=== PATIENT | female | born 1970 | race Caucasian/White ===

== ENCOUNTER 2019-02-09 17:28 | Emergency (ER) | payer BC ==
[~2019-02-09] VITALS: Ht 167.6 cm; Wt 106.0 kg
[2019-02-09 17:30] VITALS: BP 204/114
--- NOTE | 2019-02-09 18:41 | NUR ---
at [facility]
--- NOTE | 2019-02-09 19:00 | NUR ---
gave log report number of [id number]
[2019-02-09] MEDS ORDERED: LORazepam 1 MG tablet PO ONE (19:10)
== END 2019-02-09 19:43 | disposition home or self-care (01) ==
LOC: ER 17:29
DX: S29.012A Strain of muscle and tendon of back wall of thorax, initial encounter (principal); S40.022A Contusion of left upper arm, initial encounter; S40.021A Contusion of right upper arm, initial encounter; R13.10 Dysphagia, unspecified; G89.29 Other chronic pain; Z88.1 Allergy status to other antibiotic agents; Y04.0XXA Assault by unarmed brawl or fight, initial encounter; Y93.89 Activity, other specified; Y92.89 Other specified places as the place of occurrence of the external cause; Y99.8 Other external cause status
CPT/HCPCS: 71045; 99283

== ENCOUNTER 2022-03-11 22:42 | Emergency (ER) | payer BC ==
[~2022-03-11] VITALS: Ht 167.6 cm; Wt 104.5 kg
[2022-03-11 23:54] LABS: BASOPHILS # (AUTO) 0.1 X10'3 (0-0.2); BASOPHILS % (AUTO) 0.7 % (0-1); EOSINOPHILS # (AUTO) 0.1 X10'3 (0-0.9); EOSINOPHILS % (AUTO) 0.5 % (0-6); HEMATOCRIT 46.6 % (35.0-45.0); HEMOGLOBIN 15.3 g/dl (12.0-16.0); LYMPHOCYTES # (AUTO) 4.4 X10'3 (1.1-4.8); LYMPHOCYTES % (AUTO) 28.1 % (21-51); MEAN CORPUSCULAR HEMOGLOBIN 28.1 PG (27.0-31.0); MEAN CORPUSCULAR HGB CONC 32.9 g/dL (33.0-36.5); MEAN CORPUSCULAR VOLUME 85.6 FL (78-98); MEAN PLATELET VOLUME 8.2 FL (7.4-10.4); MONOCYTES # (AUTO) 1.1 X10'3 (0-0.9); MONOCYTES % (AUTO) 7.2 % (2-12); NEUTROPHILS # (AUTO) 9.9 X10'3 (1.8-7.7); NEUTROPHILS % (AUTO) 63.5 % (42-75); PLATELET COUNT 322 X10'3 (140-440); RED BLOOD COUNT 5.45 X10'6 (4.20-5.60); WHITE BLOOD COUNT 15.6 X10'3 (4.5-11.0)
[2022-03-11 23:54] LABS: URINE HCG NEGATIVE (NEG)
--- NOTE | 2022-03-11 23:54 | NUR ---
Patient taken to CT.
[2022-03-11 23:56] LABS: CLARITY,URINE CLEAR (Clear); COLOR,URINE YELLOW (Yellow); GLUCOSE, URINE 250 mg/dl (Neg); KETONES,URINE NEGATIVE (Neg); LEUKOCYTE ESTERASE ,URINE SMALL (Neg); NITRITES, URINE NEGATIVE (Neg); OCCULT BLOOD,URINE TRACE-INTACT (Neg); PROTEIN,URINE NEGATIVE (Neg); UROBILINOGEN,URINE 0.2 E.U/dL (0.2-1.0)
[2022-03-11 23:59] LABS: ALANINE AMINOTRANSFERASE 31 U/L (12-78); ALBUMIN 3.5 G/DL (3.4-5.0); ALBUMIN/GLOBULIN RATIO 1.1 (1.1-1.5); ALKALINE PHOSPHATASE 146 IU/L (46-116); ANION GAP 10 (8-16); ASPARTATE AMINO TRANSFERASE 4 U/L (10-37); BILIRUBIN,TOTAL 0.2 MG/DL (0.1-1.0); BLOOD UREA NITROGEN 26 MG/DL (7-18); BUN/CREATININE RATIO 27.4 (6.6-38.0); CALCIUM 8.8 MG/DL (8.5-10.1); CHLORIDE 100 MMOL/L (99-107); CREATININE 0.95 MG/DL (0.40-0.90); GLUCOSE 185 MG/DL (70-104); POTASSIUM 3.8 MMOL/L (3.5-5.1); SODIUM 139 MMOL/L (135-145); TOTAL PROTEIN 6.6 G/DL (6.4-8.2); eGFR 62 ML/MIN
[2022-03-12 00:04] LABS: UA COLLECTION TYPE CLN CATCH MIDSTREAM
[2022-03-12 00:16] LABS: BACTERIA,URINE FEW /HPF (Neg); SQUAMOUS EPITHELIAL CELL,UR FEW /LPF (FEW)
[2022-03-12 00:17] LABS: MUCUS STRANDS FEW /LPF (Neg); TRANSITIONAL EPI CELLS,URINE FEW /HPF
[2022-03-12] MEDS ORDERED: ondansetron/PF 4mg/2ml inj IV ONE (01:05)
[2022-03-12] MEDS ORDERED: morphine 4 MG/ML inj SYRINge IV ONE ×2 (01:05→04:15)
[2022-03-12] MEDS ORDERED: ketorolac trometh. 30mg/ml inj. IV ONE (02:00)
[2022-03-12] MEDS ORDERED: acetaminophen 325mg tablet PO ONE (05:35)
[2022-03-12] MEDS ORDERED: CefTRIAXone/D5W-Rocephin 1gm 50 ML IV ONE (06:05)
[2022-03-12] MEDS ORDERED: OXYC-658 PO (06:29)
[2022-03-12] MEDS ORDERED: HYDROmorphone inj. 0.5 MG/0.5 ML DISP.SYRIN IV ONE (06:30)
[2022-03-12 07:41] VITALS: BP 158/72
== END 2022-03-12 07:44 | disposition home or self-care (01) ==
LOC: ER 22:43
DX: N20.0 Calculus of kidney (principal); G89.29 Other chronic pain; Z88.1 Allergy status to other antibiotic agents
CPT/HCPCS: 36415; 74176; 80053; 81001; 81025; 85025; 87088; 96365; 96375; 96376; 99285; J0696; J1170; J1885; J2270; J2405; 81003